=== PATIENT | male | born 1950 | race Two or more races ===

== ENCOUNTER 2019-05-13 13:48 | Inpatient (IN) | payer OTHER ==
[~2019-05-13] VITALS: Ht 152.4 cm; Wt 5.0 kg
[2019-06-01] MEDS ORDERED: AMLODIPINE-OLM1 EACH PO (12:01)
[2019-06-01] MEDS ORDERED: ZESTRIL30 MG PO (12:02)
== END 2019-06-15 18:33 | disposition home or self-care (01) | DRG 331 ==
LOC: SURG 06-08 09:15 → O/R 06-09 05:45 → SURG 06-09 05:45 → SURH 06-11 12:26 → SURG 06-11 12:36 → MEDJ 06-12 17:39 → SURH 06-14 16:45
PROVIDERS: ADMIT Colon & Rectal Surgery
PROC: 07TB4ZZ Resection of Mesenteric Lymphatic, Percutaneous Endoscopic Approach (ICD-10-PCS; 2019-06-09)
PROC: 0DJD8ZZ Inspection of Lower Intestinal Tract, Via Natural or Artificial Opening Endoscopic (ICD-10-PCS; 2019-06-09)
PROC: 0DTN4ZZ Resection of Sigmoid Colon, Percutaneous Endoscopic Approach (ICD-10-PCS; principal; 2019-06-09 18:00)
DX: C18.7 Malignant neoplasm of sigmoid colon (principal); Z85.048 Personal history of other malignant neoplasm of rectum, rectosigmoid junction, and anus; Z90.49 Acquired absence of other specified parts of digestive tract; K66.0 Peritoneal adhesions (postprocedural) (postinfection)